=== PATIENT | male | born 1950 | race Caucasian/White ===

== ENCOUNTER 2022-03-27 15:23 | Outpatient (CLI) | payer MEDICARE | END 2022-03-27 15:24 | disposition home or self-care (01) | LOC: SCSRAD 15:23 | PROVIDERS: ATTEND Family Medicine | DX: M54.2 Cervicalgia (principal); M47.812 Spondylosis without myelopathy or radiculopathy, cervical region | CPT/HCPCS: 72050 ==

== ENCOUNTER 2023-09-10 05:47 | Day surgery (SDC) | payer MEDICARE ==
[2023-09-08 10:56] VITALS: BMI 28.7
[2023-09-08 11:43] LABS: Anion Gap 14 mmol/L (10-20); BUN (Urea Nitrogen) 18 mg/dL (8.4-25.7); Calc. Creatinine Clearance 69 mL/min (70-130); Calcium 9.3 mg/dL (7.8-10.44); Carbon Dioxide 24 mmol/L (23-31); Chloride 107 mmol/L (98-107); Estimated GFR 61; Glucose 189 mg/dL (83-110); Potassium 3.7 mmol/L (3.5-5.1); Sodium 141 mmol/L (136-145)
[2023-09-08 11:45] LABS: Hematocrit 47.4 % (38.8-50.0); Hemoglobin 16.7 g/dL (13.5-17.5); Mean Corpuscular HGB CONC 35.2 g/dL (32.0-36.0); Mean Corpuscular Hemoglobin 32.1 pg (27.0-33.0); Platelet Count 148 10x3/uL (150-450); RBC Distribution Width 12.5 % (11.5-14.5); Red Blood Cell (RBC) Count 5.21 10x6/uL (4.32-5.72); White Blood Cell (WBC) Count 8.9 10x3/uL (3.5-10.5)
[2023-09-08 12:11] LABS: INR-International Normal Ratio 1.5; Prothrombin Time 16.1 sec (9.5-12.1)
[2023-09-10] MEDS ORDERED: Protamine Sulfate 50 MG/5 ML VIAL ONE (06:50)
[2023-09-10] MEDS ORDERED: Heparin 10,000 UNITS/ 10 ML VIAL ONE (06:50)
[2023-09-10] MEDS ORDERED: Isoproterenol 0.2 MG/1 ML AMP ONE (06:51)
[2023-09-10] MEDS ORDERED: Heparin 25,000 units/D5W 500 ML ONE (06:51)
[2023-09-10] MEDS ORDERED: Fentanyl 250 MCG/5 ML VIAL ONE (07:41)
[2023-09-10] MEDS ORDERED: PROPOFOL 20 ML ONE (09:37)
[2023-09-10] MEDS ORDERED: Ondansetron PF 4 MG/2 ML Vial ONE (10:18)
== END 2023-09-10 13:33 | disposition home or self-care (01) ==
LOC: SDC 05:47
PROVIDERS: ATTEND Internal Medicine Cardiovascular Disease
PROC: 02583ZZ Destruction of Conduction Mechanism, Percutaneous Approach (ICD-10-PCS; principal; 2023-09-10)
PROC: 4A023FZ Measurement of Cardiac Rhythm, Percutaneous Approach (ICD-10-PCS; 2023-09-10)
DX: I48.0 Paroxysmal atrial fibrillation (principal); E11.22 Type 2 diabetes mellitus with diabetic chronic kidney disease; I12.9 Hypertensive chronic kidney disease with stage 1 through stage 4 chronic kidney disease, or unspecified chronic kidney disease; N18.30 Chronic kidney disease, stage 3 unspecified; G47.33 Obstructive sleep apnea (adult) (pediatric); Z79.899 Other long term (current) drug therapy; Z79.84 Long term (current) use of oral hypoglycemic drugs; Z79.01 Long term (current) use of anticoagulants; Z88.8 Allergy status to other drugs, medicaments and biological substances; Z88.1 Allergy status to other antibiotic agents; Z87.891 Personal history of nicotine dependence
CPT/HCPCS: 80048; 85027; 85347 ×2; 85610; 85730; 93005; 93623; 93656; 93657; C1732 ×3; C1759; C1760; C1893; C1894; J1644; J2405; J2704; J2720; J3010